=== PATIENT | female | born 1985 | race Caucasian/White ===

== ENCOUNTER 2018-12-04 15:32 | Emergency (ER) | payer OTHER ==
[2018-12-04] MEDS ORDERED: TDAP ADULT 0.5 ML INJ (BOOSTRIX) IM ONE (16:01)
[2018-12-04] MEDS ORDERED: ACETAMINOPHEN 500 MG TAB PO ONE (16:01)
[2018-12-04] MEDS ORDERED: IBUPROFEN 600 MG TAB PO ONE (16:01)
[2018-12-04] MEDS ORDERED: LET GEL TOPICAL 1 EA SYR TP ONE (16:01)
[2018-12-04] MEDS ORDERED: AMOXICILLIN/CLAVULANATE POT 875/125 MG TAB PO ONE (16:13)
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
[2018-12-04 17:13] VITALS: BP 116/72
== END 2018-12-04 17:05 | disposition home or self-care (01) ==
LOC: CED 15:32
DX: S51.851A Open bite of right forearm, initial encounter (principal); Z23 Encounter for immunization; W50.3XXA Accidental bite by another person, initial encounter; Y92.818 Other transport vehicle as the place of occurrence of the external cause; Y93.89 Activity, other specified; Y99.0 Civilian activity done for income or pay
CPT/HCPCS: 99283-ER; G0010-ER